=== PATIENT | female | born 1970 | race Hispanic/Latino ===

== ENCOUNTER → 2018-04-28 | Outpatient (CLI) | payer BC ==
[~2018-04-28] MED LIST: CIPRO500 MG PO; OMEPRAZOLE40 MG PO; PROMETHAZINE HC25 M1 PO; ULTRAM 50MG50 MG PO
== END ==
LOC: MAMMO 14:04
PROVIDERS: ATTEND Internal Medicine
DX: Z12.31 Encounter for screening mammogram for malignant neoplasm of breast (principal)
CPT/HCPCS: 77067

== ENCOUNTER → 2019-05-24 | Outpatient (CLI) | payer BC ==
--- NOTE | 2019-05-25 13:29 | Diagnostic Imaging Report ---
Exam: Bone mineral density study. History: Osteopenia. Comparison: None Discussion: Evaluation of the left hip and lumbar spine was performed utilizing DEXA Hologic bone densitometer. The study is technically adequate. Left hip total bone mineral density: 0.849gm/cm2, T-score is -0.8, Z-score is -0.4. Left hip femoral neck bone mineral density: 0.749gm/cm2, T-score is -1.1, Z-score is -0.4. Lumbar spine total bone mineral density:0.872gm/cm2, T-score is-1.6, Z-score is -0.8. Impression: 1. Osteopenia of the left hip, fracture risk is increased 2. Osteopenia of the lumbar spine, fracture risk is increased Least significant change (LSC) for bone mineral density as provided by sales floor manager is 0.023 g/cm2 for lumbar spine and 0.027 g/cm2 for total hip. 10 -year fracture risk per WHO Fracture Risk Assessment Tool (FRAX) for: Major osteoporotic fracture is 2.2% Hip fracture is 0.1% The above fracture probability is calculated for an untreated patient. Fracture probably may be lower if the patient has received treatment. All treatment decisions require clinical judgment and consideration of individual patient factors, including patient preferences, comorbidities, previous drug use and risk factors not captured in the FRAX model (e.g. frailty, falls, vitamin D deficiency, increased bone turnover, interval significant decline in BMD). The patient's fracture risk is compared to an age-matched control. Medical evaluation for secondary causes of low bone bone mineral density may be appropriate. Correlate clinically for the necessity and timing of the next bone mineral density study. Signed by: Dr. Brenden Armendariz M.D. on 05/25/2019 1:26 PM
--- NOTE | 2019-05-26 13:40 | Diagnostic Imaging Report ---
#[id number] - [id number] #BILATERAL DIGITAL SCREENING MAMMOGRAM WITH CAD: 05/24/2019 CLINICAL: Routine screening. Comparison is made to exams dated: 04/28/2018 mammogram and 06/20/2015 mammogram - [facility]. Current study contains 4 films. The tissue of both breasts is heterogeneously dense. This may lower the sensitivity of mammography. Current study was also evaluated with a Computer Aided Detection (CAD) system. There are clustered fine calcifications in the left breast at 3 o'clock posterior depth. These are more prominent. No other significant masses, calcifications, or other findings are seen in either breast. IMPRESSION: INCOMPLETE: NEEDS ADDITIONAL IMAGING EVALUATION The clustered fine calcifications in the left breast are indeterminate. Magnification views are recommended. The patient will be contacted by the Mammography Department to schedule this appointment. TASIA GONZÁLES M.D. ct/penrad:05/26/2019 12:08:07 Manager Net: Melanie LUA(Yohana)(M), [facility] letter sent: Additional Imaging Needed Mammogram BI-RADS: 0 Indeterminate
== END ==
LOC: MAMMO 13:21
PROVIDERS: ATTEND Internal Medicine
DX: Z00.00 Encounter for general adult medical examination without abnormal findings (principal); Z12.31 Encounter for screening mammogram for malignant neoplasm of breast; G56.03 Carpal tunnel syndrome, bilateral upper limbs; M54.2 Cervicalgia; M13.861 Other specified arthritis, right knee; M13.872 Other specified arthritis, left ankle and foot
CPT/HCPCS: 77067; 77080

== ENCOUNTER → 2019-05-27 | Outpatient (CLI) | payer BC ==
--- NOTE | 2019-05-27 14:47 | Diagnostic Imaging Report ---
Barium swallow CLERK OF WORKS(S): Zulma Russell MD Comparison: None. Procedure: Barium swallow fluoroscopic images obtained with air and barium contrast in a variety of positions. Fluoroscopy Time: 1.2 Total Dose: 8.9 mGy DISCUSSION: STUDIO ENGINEER: The bowel gas pattern is non-obstructive. SWALLOW: Grossly unremarkable. ESOPHAGUS: Mucosa is unremarkable. Predominately primary contractions. Moderate spontaneous gastroesophageal reflux. STOMACH: Unremarkable mucosal pattern. SMALL BOWEL: Bulb and sweep are normal. Duodenal-jejunal junction is in the normal expected position. IMPRESSION: Normal motility and mucosa. Moderate gastroesophageal reflux. Signed by: Zulma Russell MD on 05/27/2019 2:44 PM
== END ==
LOC: DX 09:35
PROVIDERS: ATTEND Internal Medicine Gastroenterology
DX: R13.10 Dysphagia, unspecified (principal)
CPT/HCPCS: 74220

== ENCOUNTER → 2019-06-03 | Outpatient (CLI) | payer BC ==
--- NOTE | 2019-06-06 09:11 | Diagnostic Imaging Report ---
#[id number] - [id number] #UNILATERAL LEFT DIGITAL DIAGNOSTIC MAMMOGRAM WITH SPOT COMPRESSION AND MAGNIFICATION: 06/03/2019 Comparison is made to exams dated: 05/24/2019 mammogram, 04/28/2018 mammogram and 06/20/2015 mammogram - [facility]. The tissue of the left breast is heterogeneously dense. This may lower the sensitivity of mammography. There are grouped coarse heterogeneous calcifications in the left breast at 5 o'clock middle depth. These are increased in size. No other significant masses or calcifications are seen in the breast. IMPRESSION: SUSPICIOUS OF MALIGNANCY The grouped coarse heterogeneous calcifications in the left breast are at a low suspicion for malignancy. A stereotactic biopsy is recommended. A phone call was made to the physician's office. The patient will be contacted by the Mammography Department to schedule this appointment. ZO wu/luke:06/03/2019 16:36:28 Talcer: Melanie LUA(Yohana)(Gerhard), [facility] letter sent: Biopsy Required Mammogram BI-RADS: 4a Suspicious abnormality - low suspicion for malignancy
== END ==
LOC: MAMMO 13:57
PROVIDERS: ATTEND Internal Medicine
DX: R92.1 Mammographic calcification found on diagnostic imaging of breast (principal)